=== PATIENT | female | born 1965 | race Caucasian/White ===

== ENCOUNTER → 2017-07-04 | Outpatient (CLI) | payer OTHER, SELFPAY ==
--- NOTE | 2017-07-05 00:05 | MRI ---
EXAM DATE: 07/04/2017 10:03 AM CDT. PROCEDURE: MR BRAIN WITHOUT THEN WITH IV CONTRAST. INDICATION: MALIGNANT NEOPLASM OF FRONTAL LOBE. COMPARISON: 05/16/2016. TECHNIQUE: Multiplanar multisequence images of the brain were acquired after the administration of intravenous contrast. FINDINGS: Stable postsurgical changes of left frontal lobe tumor resection with a small amount of hemosiderin lining the resection cavity. There is mild postsurgical dural enhancement overlying the surgical cavity without recurrent enhancing mass. T2/FLAIR signal abnormality adjacent to the resection cavity is stable from 05/16/2016. No acute infarct or intracranial hemorrhage. No new regions of abnormal enhancement. No mass effect or midline shift. No hydrocephalus. Internal carotid and vertebrobasilar flow voids are identified. Unremarkable orbits, paranasal sinuses, and mastoid air cells. Prior left frontal craniotomy. IMPRESSION: Stable postsurgical changes of left frontal lobe tumor resection. No recurrent mass or new enhancing lesion. Electronically signed by: Todd Joy MD 07/05/2017 12:03 AM CDT
== END | disposition home or self-care (01) ==
LOC: MRI 09:46
PROVIDERS: ATTEND Family Medicine
DX: C71.1 Malignant neoplasm of frontal lobe (principal)

== ENCOUNTER → 2017-09-25 | Outpatient (CLI) | payer OTHER ==
--- NOTE | 2017-09-25 13:24 | RAD ---
EXAM DESCRIPTION: Arthrogram Shoulder Right: RF CLINICAL HISTORY: COMPLETE ROTATOR CUFF TEAR COMPARISON: Post-arthrogram MRI scan of the right shoulder same date. TECHNIQUE: The procedure was explained to the patient with risks and benefits. The patient gave verbal and written consent. Patient supine on the fluoroscopic table with right shoulder in external rotation. The anterior mid superior right glenohumeral joint was localized by fluoroscopy. The skin was marked, then prepped and draped in a sterile fashion. Local anesthetic given intradermally and intramuscularly. 5 cc of nonionic contrast was prepared in a syringe. A mixture of 10 cc nonionic contrast, 10 cc of 1% xylocaine , and 0.1% gadolinium was prepared in a second syringe. A 1.5-cm, 25-ga. needle was introduced into the anterior superior right glenohumeral joint capsule under fluoroscopic visualization. A test injection of 2 cc of the contrast only was performed under fluoroscopy. Additional 8 cc of the contrast mixture was then injected under fluoroscopy. The patient tolerated the procedure well. Patient was transferred to the high-field MRI suite for multiplanar imaging. No immediate complications. Fluoroscopy time was less than 1 minute. Dose: 10.48 mGy. Single frontal image of the right humerus in external rotation obtained. IMPRESSION: Successful, fluoroscopic guided arthrogram of the right shoulder prior to MRI arthrogram. Permanent images from this procedure are maintained in the patient's medical record. Electronically signed by: Eliseo Fuentes MD 09/25/2017 1:23 PM [facility]
--- NOTE | 2017-09-25 14:03 | MRI ---
MRI arthrogram right shoulder INDICATION: Shoulder pain rotator cuff tear TECHNIQUE: MR arthrogram sequences right shoulder following gadolinium arthrography FINDINGS: No subscapularis rupture or retraction. No bicep rupture or dislocation. Grade 1 marbling throughout the rotator cuff muscle bellies symmetric. No advanced glenohumeral or AC joint arthrosis. There is a diffuse tear at the base of the superior labrum the bicep labral anchor to the posterior superior labrum with mild adjacent edema/cystic change in the upper glenoid. Minimal glenohumeral osteophyte formation. Diffuse mild reactive synovitis. Low-grade undersurface fraying critical zone supraspinatus and infraspinatus. No detachment or retraction. Mild subacromial and subdeltoid bursitis IMPRESSION: Diffuse tear at the base of the superior labrum to the posterior superior labrum with cystic changes in the upper glenoid Mild background glenohumeral osteoarthrosis with diffuse reactive mild synovitis. Tendinopathy with undersurface partial tearing of the supraspinatus and infraspinatus without detachment or retraction Mild subacromial and subdeltoid bursitis Mild AC joint osteoarthrosis. Generalized grade 1 fatty marbling of the rotator cuff muscle bellies without asymmetric end-stage atrophy. Electronically signed by: Spencer Dhillon MD 09/25/2017 2:01 PM [facility]
== END | disposition home or self-care (01) ==
LOC: RAD 11:44
PROVIDERS: ATTEND Family Medicine
DX: M75.121 Complete rotator cuff tear or rupture of right shoulder, not specified as traumatic (principal)

== ENCOUNTER → 2018-04-15 | Outpatient (CLI) | payer BC, OTHER ==
--- NOTE | 2018-04-15 16:23 | MRI ---
EXAM DESCRIPTION: Brain w/wo Contrast: Magnetic Resonance Imaging. CLINICAL HISTORY: MALIGNANT NEOPLASM OF FRONTAL LOBE COMPARISON: MRI scan of the brain with and without contrast 07/04/2017. TECHNIQUE: Multiplanar, high-field MRI, multiple conventional sequences, without and with gadolinium IV contrast. No adverse reactions. Multiple axial diffusion sequences. FINDINGS: Again noted is a moderate-sized area of encephalomalacia in the left frontal lobe abutting the extra-axial spaces. This region is convexly directed toward the frontal horn of the left lateral ventricle with hyperintense FLAIR gliosis between the encephalomalacia in the dilated frontal horn. Gliosis also noted inferior and superior to the lesion. No mass effect , no hemorrhage, and no contrast enhancement. Stable since the prior study. No diffusion restriction associated with the lesion. Craniotomy in the left frontal bone well visualized with no abnormal enhancement. Normal FLAIR and T2-weighted signal in the periventricular white matter and delacruz-white matter junctions of the cerebral hemispheres. . Normal signal in the bilateral basal ganglia. No hemorrhage, no cerebral edema, no mass-effect. Normal contrast enhancement. Normal signal in the brainstem and cerebellar hemispheres. No hemorrhage, no cerebral edema, no mass-effect. Normal contrast enhancement. Concordance of the diffusion and non-diffusion sequences with no evidence of acute or subacute infarction. Cortical sulci, ventricles, and other CSF spaces, and the subdural spaces are normally configured for patients age, except for the region of craniotomy and surgery.. No effacement or displacement. No midline shift. No extra-axial hemorrhage. Normal contrast enhancement. Normal flow signal void in the major vessels of the [place], and the venous sinuses. IACs are symmetric bilaterally. Normal signal in the bilateral mastoid air cells. No mass effect in the bilateral Cerebellopontine angles. Normal contrast enhancement. Pituitary gland occupies most of the sella. Normal contrast enhancement. Base of the cerebellar tonsils is at the level of the foramen magnum. Minimal mucosal thickening in the paranasal sinuses. The bony calvarium is intact. Bilateral symmetric thickening of the inner table of the frontal bones. This is stable since the prior study. IMPRESSION: 1. Region of encephalomalacia in the left frontal lobe from prior tumor resection, associated with gliosis, minimal atrophy, and dilation of the frontal horn of the left lateral ventricle. No mass effect, no hemorrhage, no abnormal contrast enhancement, no fluid collection, and no diffusion restriction. Stable since the prior study in June 2017. 2. The remainder of the brain is unremarkable. Normal noncontrast MRI diffusion study with no evidence of acute or subacute infarction. Stable since the prior study in June 2017. Electronically signed by: Eliseo Fuentes MD 04/15/2018 4:22 PM CDT
== END ==
LOC: LAB.O 11:31
PROVIDERS: ATTEND Family Medicine
DX: C71.1 Malignant neoplasm of frontal lobe (principal)

== ENCOUNTER 2018-08-22 10:29 | Emergency (ER) | payer BC, OTHER ==
[2018-08-22 10:43] VITALS: TEMP 97.8
--- NOTE | 2018-08-22 11:04 | ED.PDOC ---
History of Present Illness - General Chief Complaint: Skin/Abrasion/Tear Stated Complaint: Non-healing wound to L knee incision Time Seen by Provider: 08/22/18 10:51 Source: patient Exam Limitations: no limitations - History of Present Illness Initial Comments: Pt has had recent I&D of abscess to old surgical site on L thigh in [place]. 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 Pt has been on Keflex and Bactrim po since that drainage. Pt denies systemic sx's, increased pain, or increasing redness Timing/Duration: other Severity: moderate Location: generalized - Distal medial L thigh Improving Factors: medication Worsening Factors: nothing Associated Symptoms: swelling/mass/lumps Allergies/Adverse Reactions: Allergies NO KNOWN ALLERGY Allergy (Verified 05/24/16 14:43) Home Medications: Ambulatory Orders Carvedilol [Coreg] 6.25 mg PO BID 05/24/16 Levetiracetam [Keppra] 1,500 mg PO BID 05/24/16 Cephalexin [Cephalexin] 500 mg PO BID 08/22/18 Sulfamethoxazole-Trimethoprim [Bactrim Ds 800-160 mg] 1 tablet PO BID 08/22/18 Review of Systems - Review of Systems Constitutional: Denies: chills, fever, malaise EENTM: States: no symptoms reported Respiratory: States: no symptoms reported Cardiology: States: no symptoms reported Gastrointestinal/Abdominal: Denies: abdominal pain, diarrhea, nausea, vomiting Genitourinary: States: no symptoms reported Musculoskeletal: States: no symptoms reported Skin: States: lesions - Incision to distal thigh Neurological: States: no symptoms reported Endocrine: States: no symptoms reported Hematologic/Lymphatic: States: no symptoms reported Past Medical History (General) - Patient Medical History Hx Seizures: Yes Hx Stroke: No Hx Congestive Heart Failure: No Hx Hypertension: Yes Hx Diabetes: No Hx Cancer: Yes - Breast - chemo and RAD; brain - craniotomy Surgical History: tonsillectomy, other - Vaccination History Hx Influenza Vaccination: Yes - 2018 Hx Pneumococcal Vaccination: No - Social History Hx Tobacco Use: No Family Medical History - Family History Father Family History: Unknown Living Status: Unknown Hx Family;Other: Pt adopted Physical Exam - Physical Exam General Appearance: Alert, Anxious, No apparent distress Extremity: normal range of motion, other - L thigh has small area of erythema and open, 1.5 cm incision to medial aspect of thigh. No drainage or fluctuance Neurologic: career services manager II-XII nml as tested Skin Exam: warm/dry, other - minimal erythema Skin Problem Location: lower extremities - L thigh, distal medial Skin Character: erythema, other - no warmth Lymphatic: no adenopathy Departure - Departure Clinical Impression: Wound infection Time of Disposition: 15:31 - return tomorrow for IV Vancomycin Disposition: Discharge to Home or Self Care Departure Forms: ED Discharge - Pt. Copy, Patient Portal Self Enrollment Instructions: DI for Abrasion Referrals: Todd Beltran MD [Primary Care Provider] - 1-2 Weeks Home Medications: Ambulatory Orders Carvedilol [Coreg] 6.25 mg PO BID 05/24/16 Levetiracetam [Keppra] 1,500 mg PO BID 05/24/16 Cephalexin [Cephalexin] 500 mg PO BID 08/22/18 Sulfamethoxazole-Trimethoprim [Bactrim Ds 800-160 mg] 1 tablet PO BID 08/22/18
[2018-08-22] MEDS ORDERED: VANCOMYCIN HCL INJ 1,000 MG, VANCOMYCIN HCL INJ 500 MG in SODIUM CHLORIDE 0.9% 250ML 25... IVPB ONE (12:23)
[2018-08-22] MEDS ORDERED: VANCOMYCIN HCL INJ 500 MG VIAL ONE (12:48)
[2018-08-22] MEDS ORDERED: SODIUM CHLORIDE 0.9% 250ML 250 ML ONE (12:48)
[2018-08-22] MEDS ORDERED: VANCOMYCIN HCL INJ 1,000 MG VIAL IVPB ONE (12:48)
[2018-08-22 16:01] VITALS: BP 145/90; O2SAT 99
[2018-08-23] MEDS ORDERED: VANCOMYCIN HCL INJ 1,000 MG, VANCOMYCIN HCL INJ 500 MG in SODIUM CHLORIDE 0.9% 250ML 25... IVPB SCH (09:00)
== END 2018-08-22 15:40 | disposition home or self-care (01) ==
LOC: ER 10:29
DX: L08.9 Local infection of the skin and subcutaneous tissue, unspecified (principal); I10 Essential (primary) hypertension; R56.9 Unspecified convulsions; Z98.890 Other specified postprocedural states; Z85.3 Personal history of malignant neoplasm of breast; Z85.841 Personal history of malignant neoplasm of brain; Z92.21 Personal history of antineoplastic chemotherapy; Z92.3 Personal history of irradiation; Z79.899 Other long term (current) drug therapy
CPT/HCPCS: J3370; J7050

== ENCOUNTER 2018-08-23 09:06 | Outpatient (CLI) | payer BC ==
[~2018-08-23 09:06] MED LIST: VANCOMYCIN HCL INJ 750 MG in SODIUM CHLORIDE 0.9% 250ML 250 ML IVPB ONE
[2018-08-23] MEDS: VANCOMYCIN HCL INJ 750 MG in SODIUM CHLORIDE 0.9% 250ML 250 ML IVPB SCH ×2 (09:25→21:41)
[2018-08-23] MEDS: SODIUM CHLORIDE 0.9% (FLUSH) 10 ML SYG IV PRN ×3 (09:25→21:44)
[2018-08-23] MEDS ORDERED: VANCOMYCIN HCL INJ 750 MG in SODIUM CHLORIDE 0.9% 250ML 250 ML IVPB ONE (21:00)
[2018-08-24] MEDS ORDERED: VANCOMYCIN HCL INJ 1,000 MG VIAL IVPB ONE (09:45)
[2018-08-24] MEDS ORDERED: SODIUM CHLORIDE 0.9% 250ML 250 ML ONE (09:45)
[2018-08-24] MEDS: VANCOMYCIN HCL INJ 750 MG in SODIUM CHLORIDE 0.9% 250ML 250 ML IVPB SCH ×2 (09:56→21:09)
[2018-08-24] MEDS: SODIUM CHLORIDE 0.9% (FLUSH) 10 ML SYG IV PRN ×2 (11:40→21:11)
[2018-08-24] MEDS ORDERED: VANCOMYCIN HCL INJ 750 MG in SODIUM CHLORIDE 0.9% 250ML 250 ML IVPB ONE ×4 (21:00)
[2018-08-24 21:15] VITALS: O2SAT 100
[2018-08-25] MEDS ORDERED: VANCOMYCIN HCL INJ 1,000 MG VIAL IVPB ONE (09:12)
[2018-08-25] MEDS ORDERED: SODIUM CHLORIDE 0.9% 250ML 250 ML ONE (09:12)
[2018-08-25] MEDS: VANCOMYCIN HCL INJ 750 MG in SODIUM CHLORIDE 0.9% 250ML 250 ML IVPB SCH (09:23)
[2018-08-25 10:22] VITALS: BP 130/95; TEMP 98.4
== END 2018-08-25 11:00 | disposition home or self-care (01) ==
LOC: TXRM 09:06
PROVIDERS: ATTEND Emergency Medicine
DX: A49.02 Methicillin resistant Staphylococcus aureus infection, unspecified site (principal)
CPT/HCPCS: 36415; 80202; 96365; 96366; G0463; J3370; J7050

== ENCOUNTER → 2018-11-25 | Outpatient (CLI) | payer BC | LOC: GMAJ 14:41 | PROVIDERS: ATTEND Family Medicine | DX: R56.9 Unspecified convulsions (principal) ==

== ENCOUNTER → 2018-12-01 | Outpatient (CLI) | payer BC ==
--- NOTE | 2018-12-02 11:56 | MRI ---
EXAM DESCRIPTION: Brain w/wo Contrast: Magnetic Resonance Imaging. CLINICAL HISTORY: 53 years Female MALIGNANT NEOPLASM OF FRONTAL LOBE COMPARISON: MRI scan of the brain with and without gadolinium IV contrast 04/15/2018. TECHNIQUE: Multiplanar, high-field MRI, multiple conventional sequences, without and with gadolinium IV contrast. No adverse reactions. Multiple axial diffusion sequences. FINDINGS: Again noted is area of and septal malacia in the left frontal lobe with no mass effect, and adjacent dilated cortical sulci and slight dilation of the frontal horn of the left lateral ventricle. Gliosis in the white matter abutting the lesion. No abnormal contrast within the lesion or on the margins are in the dura or meninges. There is slight contraction of the lesion and decrease in scoliosis since the prior study. No abnormal diffusion in the margins of the lesion. Adjacent left frontal craniotomy again noted. Small focal hyperintense FLAIR signal in the parasagittal left frontal lobe just inferior to the genu of the corpus callosum, not seen on T2 sequences or the prior study and could represent artifact. No diffusion restriction or abnormal contrast enhancement. Normal signal in the bilateral basal ganglia. No hemorrhage, no cerebral edema, no mass-effect. Normal contrast enhancement. Normal signal in the brainstem and cerebellar hemispheres. No hemorrhage, no cerebral edema, no mass-effect. Normal contrast enhancement. Concordance of the diffusion and non-diffusion sequences with no evidence of acute or subacute infarction. Cortical sulci, ventricles, and other CSF spaces, and the subdural spaces are normally configured except for prominence of the cortical sulci bilateral frontal lobes which is stable since the prior study. No effacement or displacement. No midline shift. No extra-axial hemorrhage. Normal contrast enhancement. Normal flow signal void and normal contrast enhancement in the major vessels of the [place], and the venous sinuses. IACs are symmetric bilaterally. Normal signal in the bilateral mastoid air cells. No mass effect in the bilateral Cerebellopontine angles. Normal contrast enhancement. Pituitary gland occupies most of the sella. Normal contrast enhancement. Base of the cerebellar tonsils is at the level of the foramen magnum. Normal signal in the paranasal sinuses. Normal contrast enhancement The bony calvarium is intact. IMPRESSION: 1. Region of left frontal lobe encephalomalacia, atrophy, and gliosis showing slight contraction compared to the prior study, with no new mass effect, new contrast enhancement, or new hemorrhage. Frontal lobe cortical atrophy stable since the prior study. 2. Small white matter lesion abuts the parasagittal left genu of the corpus callosum, new since the prior study, versus artifact. No mass effect, no hemorrhage, no abnormal contrast enhancement Electronically signed by: Eliseo Fuentes MD 12/02/2018 11:53 AM [facility]
== END ==
LOC: MRI 13:01
PROVIDERS: ATTEND Family Medicine
DX: C71.1 Malignant neoplasm of frontal lobe (principal); G93.89 Other specified disorders of brain

== ENCOUNTER → 2019-10-28 | Outpatient (CLI) | payer BC | LOC: GMAJ 16:47 | PROVIDERS: ATTEND Family Medicine | DX: R56.9 Unspecified convulsions (principal); I10 Essential (primary) hypertension; E78.2 Mixed hyperlipidemia ==

== ENCOUNTER → 2020-09-04 | Outpatient (CLI) | payer OTHER ==
--- NOTE | 2020-09-04 15:02 | MRI ---
EXAM DESCRIPTION: Brain w/wo Contrast: Magnetic Resonance Imaging. 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 No adverse reactions. Multiple axial diffusion sequences. FINDINGS: Large defect and loss of parenchyma in the cortical and subcortical left frontal lobe with loss of tissue and no mass effect. Minimal prominence of the adjacent cortical sulci. Surrounding by right T2 and FLAIR tissue rim representing gliosis. Minimal prominence of the anterior superior left sylvian fissure. No diffusion restriction. No hemorrhage, no cerebral edema, no mass effect. No abnormal contrast enhancement. Stable since the prior study.. Few bilateral small foci of hyperintense FLAIR and T2-weighted signal in the periventricular white matter and del[place]ruz-white matter junctions of the cerebral hemispheres. No hemorrhage, no cerebral edema, no mass-effect. No abnormal contrast enhancement. Normal signal in the bilateral basal ganglia. Normal contrast enhancement. Normal signal in the brainstem and cerebellar hemispheres. Normal contrast enhancement. Concordance of the diffusion and non-diffusion sequences with no evidence of acute or subacute infarction. Cortical sulci, ventricles, and other CSF spaces, and the subdural spaces are otherwise physiologic for patient's age. No effacement or displacement. No midline shift. No extra-axial hemorrhage. Normal contrast enhancement. Normal flow signal void in the major vessels of the [place], and the venous sinuses. IACs are symmetric bilaterally. Normal signal in the bilateral mastoid air cells. No mass effect in the bilateral Cerebellopontine angles. Normal contrast enhancement. Pituitary gland occupies most of the sella. Normal contrast enhancement. Base of the cerebellar tonsils is at the level of the foramen magnum. Minimal mucoperiosteal thickening in the bilateral paranasal sinuses. The bony calvarium demonstrates postoperative changes which are stable with no abnormal contrast enhancement. IMPRESSION: 1. Previous surgical resection of brain tumor from the left frontal lobe with residual encephalomalacia, gliosis. Adjacent cortical sulci prominence and atrophy without mass effect or abnormal contrast enhancement. No new mass, no new edema. 2. Minimal frontal subcortical white matter focal lesions bilaterally most likely related to cerebral microvascular disease. No intra-axial or extra-axial hemorrhage or fluid collection. No abnormal contrast enhancement. 3. Chronic paranasal sinusitis. Electronically signed by: Eliseo Fuentes MD 09/04/2020 3:00 PM [employer]
== END ==
LOC: MRI 08:56
PROVIDERS: ATTEND Psychiatry & Neurology Neurology
DX: Z01.812 Encounter for preprocedural laboratory examination (principal); C71.9 Malignant neoplasm of brain, unspecified; Z98.890 Other specified postprocedural states; G93.89 Other specified disorders of brain; G31.9 Degenerative disease of nervous system, unspecified; R90.82 White matter disease, unspecified; J32.9 Chronic sinusitis, unspecified